=== PATIENT | female | born 1965 | race Caucasian/White ===

== ENCOUNTER 2017-08-23 05:39 | Day surgery (SDC) | payer BC ==
[2017-08-23] MEDS ORDERED: MIDAZOLAM 1 MG/ML 2 ML INJ (07:45)
[2017-08-23] MEDS ORDERED: FENTAnyl 50 MCG/ML VIAL (07:46)
== END 2017-08-23 12:22 | disposition home or self-care (01) ==
LOC: GIL 05:39
DX: K21.9 Gastro-esophageal reflux disease without esophagitis (principal); K29.60 Other gastritis without bleeding
CPT/HCPCS: 43239

== ENCOUNTER 2018-02-04 13:50 | Day surgery (SDC) | payer BC ==
[~2018-02-04 13:50] MED LIST: BUPIVACAINE 0.25% (MPF) 30 ML INJ; CEFAZOLIN 1 GM INJ; CEFAZOLIN 2 GM/50 ML (PMX) 50 ML IVPB; DEXAMETHASONE 4 MG/ML 1 ML INJ; ONDANSETRON 4 MG INJ; SOD CHLORIDE 0.9% 1,000 ML IV; SUGAMMADEX SODIUM 200 MG/2 ML VIAL IV
[2018-02-04] MEDS ORDERED: FENTAnyl 50 MCG/ML VIAL (14:28)
[2018-02-04] MEDS ORDERED: MIDAZOLAM 1 MG/ML 2 ML INJ (14:28)
[2018-02-04] MEDS ORDERED: PROPOFOL 20 ML (14:29)
[2018-02-04] MEDS ORDERED: SUCCINYLCHOLINE CHLORIDE 100 MG/5 ML SYG IV (14:29)
[2018-02-04] MEDS ORDERED: LIDOCAINE 2% (SDV) 5 ML INJ (14:29)
[2018-02-04] MEDS ORDERED: ROCURONIUM 50 MG INJ (14:30)
[2018-02-04] MEDS ORDERED: METOCLOPRAMIDE 10 MG INJ (14:30)
[2018-02-04] MEDS ORDERED: PHENYLephrine (100 MCG/ML) 5ML SYG (15:55)
[2018-02-04] MEDS: BUPIVACAINE 0.25% (MPF) 30 ML INJ INJ (16:16)
[2018-02-04] MEDS ORDERED: ROPIVACAINE 0.5 % 30 ML VIAL (16:37)
[2018-02-04] MEDS: HYDROCODONE/APAP (5/325) TAB PO (17:16)
[2018-02-04] MEDS ORDERED: ONDANSETRON 4 MG INJ (17:21)
[2018-02-04] MEDS ORDERED: HYDROmorphONE 1 MG/5 ML IV SYRINGE IV ×2 (17:21→17:30)
[2018-02-04] MEDS: ONDANSETRON 4 MG INJ IV (17:26)
[2018-02-04] MEDS: HYDROmorphONE 1 MG/5 ML IV SYRINGE IV ×4 (17:26→18:11)
[2018-02-04] MEDS ORDERED: LABETALOL HCL 20MG INJ IV (17:30)
[2018-02-04] MEDS ORDERED: hydrALAzine 20 MG INJ IV (17:30)
== END 2018-02-04 18:43 | disposition home or self-care (01) ==
LOC: SDS 13:50
DX: K80.10 Calculus of gallbladder with chronic cholecystitis without obstruction (principal)
CPT/HCPCS: 47562